=== PATIENT | male | born 1955 | race Caucasian/White ===

== ENCOUNTER 2017-05-31 10:46 | Outpatient (CLI) | payer OTHER ==
--- NOTE | 2017-05-31 13:10 | RAD ---
CERVICAL SPINE THREE VIEWS: History: Cervical disc disease. Surgical follow up. FINDINGS: Anterior fusion changes noted. Anterior plate and screws transfix C3, C4, and C5 with interbody impl ants in place. Vertebral body height and alignment is maintained. Posterior spondolytic changes at C 3-4 and C4-5 are noted. Loss of disc space seen at C5-6 and C6-7. Slight anterior wedging at C6 with anterior osteophytes. IMPRESSION: Degenerative and post-operative changes of the cervical spine noted. POS: SHAHEED
== END 2017-05-31 10:47 | disposition home or self-care (01) ==
LOC: TBSIIMAG 10:46
PROVIDERS: ATTEND Neurological Surgery
DX: M50.00 Cervical disc disorder with myelopathy, unspecified cervical region (principal); M47.812 Spondylosis without myelopathy or radiculopathy, cervical region; Z98.1 Arthrodesis status
CPT/HCPCS: 72040